=== PATIENT | male | born 1975 | race Caucasian/White ===

== ENCOUNTER 2016-12-27 16:41 | Emergency (ER) | payer SELFPAY | END 2016-12-27 17:39 | disposition home or self-care (01) | LOC: D.ER 16:41 | DX: K04.7 Periapical abscess without sinus (principal) ==

== ENCOUNTER 2017-11-24 23:30 | Emergency (ER) | payer SELFPAY | END 2017-11-26 04:20 | disposition home or self-care (01) | LOC: D.ER 23:30 | DX: S43.402A Unspecified sprain of left shoulder joint, initial encounter (principal); X58.XXXA Exposure to other specified factors, initial encounter; Y93.89 Activity, other specified; Y92.89 Other specified places as the place of occurrence of the external cause ==

== ENCOUNTER 2018-12-01 08:15 | Emergency (ER) | payer OTHER ==
[~2018-12-01] VITALS: Ht 190.5 cm; Wt 104.1 kg
[2018-12-01 08:20] VITALS: Ht 190.5 cm; Wt 104.1 kg
[2018-12-01] MEDS ORDERED: TYLENOL W/CODEI1 TAB PO (08:21)
[2018-12-01] MEDS ORDERED: GLUCOPHAGE850 MG PO (08:23)
[2018-12-01 08:41] LABS: BASOPHILS 0.2 % (0-2); EOSINOPHILS 2.8 % (0-7); HEMATOCRIT 44.8 % (42.0-54.0); HEMOGLOBIN 15.5 g/dL (13.5-17.5); IMMATURE GRANULOCYTES 0.1 % (0-5); LYMPHOCYTES 30.2 % (15-50); MCH 29.1 pg (26.0-34.0); MCHC 34.6 g/dL (31.0-37.0); MCV 84.1 fL (80.0-100.0); MEAN PLATELET VOLUME 10.1 fL (7.4-10.4); MONOCYTES 8.4 % (2-11); NEUTROPHILS 58.3 % (40-80); PLATELET COUNT 201 10x3/uL (130-400); RBC 5.33 10x6/uL (4.20-6.10); RDW 13.1 % (11.5-14.5); WBC 8.4 10x3/uL (4.8-10.8)
[2018-12-01 08:55] LABS: ALKALINE PHOSPHATASE 59 U/L (46-116); ALT (SGPT) 27 U/L (10-68); BILIRUBIN - TOTAL 0.67 mg/dL (0.2-1.3); CALC OSMOLALITY 283 mosm/kg (275-300); CALCIUM 8.8 mg/dL (8.5-10.1); CHLORIDE - SERUM 104 mmol/L (98-107); CREATININE - SERUM 0.9 mg/dL (0.6-1.3); GLUCOSE 191 mg/dL (74-106); POTASSIUM - SERUM 4.3 mmol/L (3.5-5.1); PROTEIN - SERUM 7.7 g/dL (6.4-8.2); SODIUM 140 mmol/L (136-145); UREA NITROGEN 13 mg/dL (7-18); eGFR NON AFRICAN AMERICAN > 90 mL/min (90-120)
[2018-12-01 08:59] LABS: APPEARANCE CLEAR (CLEAR); BILIRUBIN NEGATIVE (NEGATIVE); COLOR YELLOW (YELLOW); GLUCOSE 50 mg/dL (NEGATIVE); KETONE NEGATIVE (NEGATIVE); NITRITE NEGATIVE (NEGATIVE); PROTEIN NEGATIVE (NEGATIVE); SPECIFIC GRAVITY 1.015 (1.005-1.020)
[2018-12-01] MEDS ORDERED: FLORASTOR250 MG PO (10:34)
[2018-12-01] MEDS ORDERED: HYDROCODON-ACE1 EA10 PO (10:34)
[2018-12-01] MEDS ORDERED: FLAGYL500 MG PO (10:34)
[2018-12-01] MEDS ORDERED: CIPRO500 MG PO (10:34)
[2018-12-01 13:39] VITALS: BP 122/70
== END 2018-12-01 11:57 | disposition home or self-care (01) ==
LOC: D.ER 08:15
PROVIDERS: Family Medicine
DX: I88.0 Nonspecific mesenteric lymphadenitis (principal); R10.9 Unspecified abdominal pain; K38.1 Appendicular concretions; E11.9 Type 2 diabetes mellitus without complications; R31.9 Hematuria, unspecified